=== PATIENT | female | born 1960 | race Caucasian/White ===

== ENCOUNTER → 2020-04-07 11:02 | Outpatient (CLI) | payer MEDICARE, SELFPAY | PROVIDERS: Visit Provider Internal Medicine | DX: L03.116 Cellulitis of left lower limb (principal) | CPT/HCPCS: 87070; 87077; 87186; 87205 ==

== ENCOUNTER 2020-04-29 14:00 | Outpatient (RCR) | payer MEDICARE, SELFPAY | END 2020-04-29 14:05 | disposition home or self-care (01) | LOC: PT 14:00 | PROVIDERS: PCP Family Medicine; Visit Provider Internal Medicine | DX: L98.9 Disorder of the skin and subcutaneous tissue, unspecified (principal) | CPT/HCPCS: 97140; 97162; 97597 ==

== ENCOUNTER 2022-01-04 13:34 | Outpatient (RCR) | payer MEDICARE, SELFPAY | END 2022-01-04 13:40 | disposition home or self-care (01) | LOC: PT 13:34 | PROVIDERS: Visit Provider Internal Medicine | DX: E11.622 Type 2 diabetes mellitus with other skin ulcer (principal); M79.671 Pain in right foot | CPT/HCPCS: 97162 ==